=== PATIENT | male | born 1960 | race Caucasian/White ===

== ENCOUNTER 2017-04-21 05:43 | Day surgery (SDC) | payer SELFPAY ==
[~2017-04-21] VITALS: Ht 170.2 cm; Wt 98.0 kg
[~2017-04-21 05:43] MED LIST: ASPIRIN81 MG PO; CELEBREX100 M1 PO; FISH OIL1000 MG PO; HYDROCHLOROT25 MG PO; METOPROL TAR25 MG PO; OMEPRAZOLE10 MG PO; SIMVASTATIN20 MG PO
[2017-04-21] MEDS ORDERED: PERCOCET 10/31 COMBO PO (08:50)
[2017-04-21 10:01] VITALS: BP 129/71
== END 2017-04-21 09:35 | disposition home or self-care (01) | DRG 489 ==
LOC: ORM 05:43
PROVIDERS: ATTEND Orthopaedic Surgery
PROC: 0SBD4ZZ Excision of Left Knee Joint, Percutaneous Endoscopic Approach (ICD-10-PCS; principal; 2017-04-21)
DX: S83.232A Complex tear of medial meniscus, current injury, left knee, initial encounter (principal); I10 Essential (primary) hypertension; S83.282A Other tear of lateral meniscus, current injury, left knee, initial encounter; M65.9 Synovitis and tenosynovitis, unspecified; M94.262 Chondromalacia, left knee; M19.90 Unspecified osteoarthritis, unspecified site; X50.1XXA Overexertion from prolonged static or awkward postures, initial encounter

== ENCOUNTER 2017-07-28 05:39 | Inpatient (IN) | payer SELFPAY ==
[2017-07-28] VITALS (9 sets, daily range): BP systolic 119–149; BP diastolic 70–86
[~2017-07-28] VITALS: Ht 170.2 cm; Wt 99.8 kg
[~2017-07-28 05:39] MED LIST changes: +PERCOCET 10/31 COMBO PO
[2017-07-28 06:10] LABS: HEMATOCRIT 41.5 % (39.0-50.0); HEMOGLOBIN 14.5 g/dl (14.0-18.0); IMMATURE GRANULOCYTES 0.6 % (0.0-1.0); MEAN CELL VOLUME 92.6 fL CALC (80.0-100.0); MEAN CORPUSCULAR HGB 32.4 pG CALC (26.0-32.0); MEAN CORPUSCULAR HGB CONC 34.9 g/L CALC (32.0-36.0); NEUT# 4.27 thou/uL (1.82-7.42); RED BLOOD COUNT 4.48 mill/uL (4.70-6.10); RED CELL DISTRI WIDTH 11.8 % (11.5-15.5)
[2017-07-28 06:31] LABS: ANION GAP 17 (6-22 (CALC)); BUN 20 mg/dL (9-20); BUN/CREATININE RATIO 29 (12-20 (CALC)); CALCIUM 10.8 mg/dL (8.4-10.2); CARBON DIOXIDE 26 mmol/l (22-30); CHLORIDE 105 mmol/l (95-108); CREATININE 0.7 mg/dL (0.7-1.3); GFR > 60 ML/MIN (>=60 (CALC)); GFR FOR AFR.AMER. > 60 ML/MIN (>=60 (CALC)); GLUCOSE 112 mg/dL (75-110); POTASSIUM 4.3 mmol/l (3.5-5.1); SODIUM 143 mmol/l (137-146)
[2017-07-28 11:32] LABS: HEMATOCRIT 36.4 % (39.0-50.0); HEMOGLOBIN 12.7 g/dl (14.0-18.0)
[2017-07-29 03:06] VITALS: BP 143/87
[2017-07-29 06:53] LABS: HEMATOCRIT 34.7 % (39.0-50.0)
[2017-07-29 09:22] VITALS: BP 148/91
[2017-07-29 16:00] VITALS: BP 124/78
[2017-07-29 18:52] VITALS: BP 151/89
[2017-07-29 23:50] VITALS: BP 131/81
[2017-07-30 03:59] VITALS: BP 149/88
[2017-07-30 05:45] LABS: HEMATOCRIT 31.7 % (39.0-50.0); HEMOGLOBIN 10.8 g/dl (14.0-18.0)
[2017-07-30 07:45] VITALS: BP 144/91
[2017-07-30 08:32] VITALS: BP 144/91
[2017-07-30] MEDS ORDERED: ASPIRIN EC325 MG PO (10:43)
[2017-07-30] MEDS ORDERED: SURFAK240 MG/CAP PO (10:43)
[2017-07-30] MEDS ORDERED: PERCOCET 10/31 COMBO PO (10:43)
== END 2017-07-30 12:28 | disposition home or self-care (01) | DRG 470 ==
LOC: MS2 05:39
PROVIDERS: ADMIT Orthopaedic Surgery; ATTEND Orthopaedic Surgery
PROC: 0SR904A Replacement of Right Hip Joint with Ceramic on Polyethylene Synthetic Substitute, Uncemented, Open Approach (ICD-10-PCS; principal; 2017-07-28)
DX: M16.11 Unilateral primary osteoarthritis, right hip (principal); Z68.34 Body mass index [BMI] 34.0-34.9, adult; E78.5 Hyperlipidemia, unspecified; I10 Essential (primary) hypertension; K21.9 Gastro-esophageal reflux disease without esophagitis; F10.20 Alcohol dependence, uncomplicated
CPT/HCPCS: J2270; J2710

== ENCOUNTER 2018-12-11 08:07 | Day surgery (SDC) | payer SELFPAY ==
[~2018-12-11] VITALS: Ht 170.2 cm; Wt 90.7 kg
[~2018-12-11 08:07] MED LIST changes: +ASPIRIN EC325 MG PO; +SG ASA LOW81 M1 PO; +SURFAK240 MG/CAP PO; +[UNRECOGNIZED DRUG - OTHER] PO
[2018-12-11 10:40] VITALS: BP 121/73
== END 2018-12-11 10:46 | disposition home or self-care (01) | DRG 951 ==
LOC: ENDO 08:07
PROVIDERS: ATTEND Surgery
PROC: 0DJD8ZZ Inspection of Lower Intestinal Tract, Via Natural or Artificial Opening Endoscopic (ICD-10-PCS; principal; 2018-12-11)
DX: Z12.11 Encounter for screening for malignant neoplasm of colon (principal); K64.8 Other hemorrhoids; I10 Essential (primary) hypertension

== ENCOUNTER 2023-09-05 08:10 | Day surgery (SDC) | payer OTHER ==
[~2023-09-05] VITALS: Ht 170.2 cm; Wt 90.7 kg
[~2023-09-05 08:10] MED LIST changes: +ADLT ASA LOW81 MG PO; +CELEBREX200 M1 PO; +CELEBREX200 MG PO; +FAMOTIDINE40 M1 PO; +LISINOPRIL10 MG PO; +SILDENAFIL20 MG PO; +TESTOST ENA200 MG/ML IM; +TOPROL XL25 M1 PO; +TOPROL XL50 MG PO; +ZESTRIL10 M1 PO
[2023-09-05] MEDS ORDERED: LACTATED RINGER'S 1,000 ML IV ONE ×2 (08:24→09:49)
[2023-09-05] MEDS ORDERED: BUPIVACAINE 133 MG/10 ML VIAL IJ ONE (10:31)
[2023-09-05 11:59] VITALS: BP 144/89
[2023-09-05] MEDS ORDERED: PROPOFOL 200 MG/20 ML VIAL IV ONE (16:04)
[2023-09-05] MEDS ORDERED: GLYCOPYRROLATE 0.2 MG/ML IV ONE (16:04)
[2023-09-05] MEDS ORDERED: LIDOCAINE HCL 2% 2ML SDV IV ONE (16:04)
== END 2023-09-05 11:19 | disposition home or self-care (01) | DRG 392 ==
LOC: ENDO 08:10
PROVIDERS: ATTEND Surgery
PROC: 0DB48ZX Excision of Esophagogastric Junction, Via Natural or Artificial Opening Endoscopic, Diagnostic (ICD-10-PCS; principal; 2023-09-05)
PROC: 0DB78ZX Excision of Stomach, Pylorus, Via Natural or Artificial Opening Endoscopic, Diagnostic (ICD-10-PCS; 2023-09-05)
PROC: 0D738ZZ Dilation of Lower Esophagus, Via Natural or Artificial Opening Endoscopic (ICD-10-PCS; 2023-09-05)
DX: K22.2 Esophageal obstruction (principal); K21.00 Gastro-esophageal reflux disease with esophagitis, without bleeding; K29.70 Gastritis, unspecified, without bleeding; K44.9 Diaphragmatic hernia without obstruction or gangrene; I10 Essential (primary) hypertension
CPT/HCPCS: C9290